=== PATIENT | female | born 1985 | race Hispanic/Latino ===

== ENCOUNTER → 2017-11-04 | Day surgery (SDC) | payer OTHER ==
[2017-11-01 15:56] LABS: BASOPHILS % 0.4 % (0.0-1.0); HEMATOCRIT 36.7 % (34.2-44.1); HEMOGLOBIN 12.6 g/dL (12.0-16.0); LYMPHOCYTES # (AUTO) 2.6 (1.0-3.2); MEAN CORPUSCULAR HEMOGLOBIN 31.3 pg (28-32); MEAN CORPUSCULAR HGB CONC 34.3 g/dL (31-35); MEAN CORPUSCULAR VOLUME 91.3 fL (81-99); MONOCYTES # (AUTO) 0.3 (0.2-0.8); MONOCYTES % 4.4 % (4.4-11.3); NEUTROPHILS # (AUTO) 4.5 (2.1-6.9); NEUTROPHILS % 60.1 % (38.7-80.0); PLATELET COUNT 241 x10e3/uL (140-360); RED BLOOD COUNT 4.02 x10e6/uL (3.6-5.1); RED CELL DISTRIBUTION WIDTH 11.6 % (11.7-14.4)
[~2017-11-04] MED LIST: BELLADONNA/OPIUM 60 MG SUPP PR ONE; DEXAMETHASONE SOD PHOS INJ 4 MG/ML VIAL ONE; FENTANYL CITRATE/PF 100MCG/2 ML INJ ONE; IOPAMIDOL 610MG/1ML 300 MG/ML VIAL IV ONE; LEVOFLOXACIN 500MG/D5W 100ML 100 ML IV ONE; LIDOCAINE HCL 2% LOCAL INJ 5 ML SDV VIAL INJ ONE; LORYNA 3 MG-0.1 EACH PO; MIDAZOLAM HCL 2 MG/2 ML VIAL ONE; ONDANSETRON HCL INJ 2 MG/ML VIAL ONE; PROPOFOL IV EMULSION 10 MG/ML 20 ML VIAL ONE; SEVOFLURANE INHAL SOLN 250 ML PEN BTL ONE; TYLENOL # 31 EA PO; ULTRAM 50MG50 MG PO
--- NOTE | 2017-11-18 10:42 | Operative Report ---
DATE OF PROCEDURE: November 04, 2017 PREOPERATIVE DIAGNOSIS: Chronic cystitis. POSTOPERATIVE DIAGNOSIS: Chronic cystitis. OPERATIVE PROCEDURES PERFORMED 1. Cystoscopy. 2. Bladder biopsy. 3. Hydrodistention of the bladder. ANESTHESIA: General anesthesia. ESTIMATED BLOOD LOSS: Minimal. INDICATIONS: Ms. Sherry Jamison is a 32-year-old woman with a history of chronic pelvic pain that her manager configuration has decided is not of gynecologic origin. She has recurrent frequency, urgency and suprapubic pain. She now presents for potential diagnosis and management of this problem. PROCEDURE IN DETAIL: Patient was brought into the operating room and placed in the supine position. After administration of general anesthesia, was placed in the dorsal lithotomy position, and prepped and draped in the usual sterile fashion. Cystourethroscopy was performed using a 21-[place] cystoscope. The anterior and posterior urethra were noted to be normal. The bladder was entered without difficulty. Upon entrance into the bladder, the ureteral orifices were in normal anatomical position and produced clear efflux. There were no mucosal lesions identified. There was filling of the bladder some mild trabeculations noted, grade 1, but no cellules or diverticula appreciated. There was no noted bleeding or glomerulations seen with the bladder filling. Her bladder capacity was greater than 800 mL. The bladder was then decompressed, and biopsies were taken from the posterior wall and right and left lateral rocha. These were done with the cold-cut bladder biopsy forceps. The biopsy sites were then fulgurated using the Bugbee electrode. The bladder was then filled to approximately 1 L in capacity, and held in that position for approximately 90 seconds. The bladder was then decompressed and the cystoscope and sheath were removed. The patient returned to the supine position, and the anesthesia was reversed. She was transferred to her bed and taken to the postanesthesia care unit in good condition. Of note, the needle and instrument counts were correct at the conclusion of the case. Job#: [id number]
== END | disposition home or self-care (01) ==
LOC: OR 11:18
PROVIDERS: ATTEND Urology
DX: N30.20 Other chronic cystitis without hematuria (principal); N32.89 Other specified disorders of bladder; Z01.812 Encounter for preprocedural laboratory examination
CPT/HCPCS: 36415; 52214; 81025; 85025; 88305; J1100; J1956; J2001; J2250; J2405

== ENCOUNTER 2018-11-14 08:56 | Outpatient (RCR) | payer OTHER ==
[~2018-11-14 08:56] MED LIST changes: -BELLADONNA/OPIUM 60 MG SUPP PR ONE; -DEXAMETHASONE SOD PHOS INJ 4 MG/ML VIAL ONE; -FENTANYL CITRATE/PF 100MCG/2 ML INJ ONE; -IOPAMIDOL 610MG/1ML 300 MG/ML VIAL IV ONE; -LEVOFLOXACIN 500MG/D5W 100ML 100 ML IV ONE; -LIDOCAINE HCL 2% LOCAL INJ 5 ML SDV VIAL INJ ONE; -MIDAZOLAM HCL 2 MG/2 ML VIAL ONE; -ONDANSETRON HCL INJ 2 MG/ML VIAL ONE; -PROPOFOL IV EMULSION 10 MG/ML 20 ML VIAL ONE; -SEVOFLURANE INHAL SOLN 250 ML PEN BTL ONE
== END 2018-11-30 ==
LOC: PT 08:56
PROVIDERS: ATTEND Neurological Surgery
DX: M51.17 Intervertebral disc disorders with radiculopathy, lumbosacral region (principal)